=== PATIENT | male | born 1985 | race Caucasian/White ===

== ENCOUNTER 2020-01-15 01:06 | Emergency (ER) | payer MEDICAID ==
[~2020-01-15] VITALS: Ht 190.5 cm; Wt 116.6 kg
[2020-01-15 01:17] VITALS: BP 137/95; Ht 190.5 cm; Wt 116.6 kg
== END 2020-01-15 01:59 | disposition left against medical advice (07) ==
LOC: ED 01:06
DX: Z53.21 Procedure and treatment not carried out due to patient leaving prior to being seen by health care provider (principal)